=== PATIENT | female | born 1985 | race Caucasian/White ===

== ENCOUNTER 2016-07-28 17:01 | Emergency (ER) | payer OTHER ==
[~2016-07-28 17:01] MED LIST: IBUP400T20 PO; LEVE500 PO; LITH300T PO; PENI250T59 PO; PRAZ5CAP PO; ROBA750T PO
[2016-07-28 17:02] VITALS: BP 135/98; PULSE 120; RESP 20; TEMP 98.6; O2SAT 98
[2016-07-28] MEDS ORDERED: SODIUM CHLOR 0.9% 1000 ML INJ 1,000 ML IV SCH (17:15)
[2016-07-28] MEDS ORDERED: MORPHINE SULFATE 4 MG/ML INJ IV PUSH ONE ×2 (17:15→19:15)
[2016-07-28] MEDS ORDERED: ONDANSETRON HCL 4 MG/2 ML VIAL IVP ONE (17:15)
[2016-07-28] MEDS ORDERED: SODIUM CHLORIDE 0.9% FLUSH 5 ML FLUSH IVF PRN (17:15)
[2016-07-28 17:17] VITALS: O2SAT 95
--- NOTE | 2016-07-28 17:20 | PD ---
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 Symptoms started 2 days ago. She describes it as a sharp, constant, moderate to severe pain with no obvious aggravating or alleviating factors. She reports decreased urination but denies true dysuria. She denies nausea or vomiting but she has had a decreased appetite. Denies fevers or chills, flank pain, vaginal bleeding or discharge, diarrhea or constipation. She reports that she has not been sexually active in approximately 5 months and her last menstrual periods was one month ago. She reports that she was told in the past that she had a left-sided ovarian cyst and she believes that this pain feels similar. She has never had any abdominal surgeries. She still has her appendix. No other complaints. PFSH Past Medical History Anemia: Yes Arthritis: Yes Asthma: No Autoimmune Disease: No Blood Disorders: Yes (ANEMIC) Bipolar Disorder: Yes Anxiety: Yes Depression: No Heart Rhythm Problems: No Cancer: No Cardiovascular Problems: Yes (HTN) High Cholesterol: No Chemotherapy: No Chest Pain: No Congestive Heart Failure: No COPD: No Cerebrovascular Accident: No Diabetes: No Diminished Hearing: No Endocrine: No Gastrointestinal Disorders: No Glaucoma: No Genitourinary: Yes Headaches: No Hepatitis: No Herniated Disk: Yes Hypertension: No Immune Disorder: No Implanted Vascular Access Dvce: Yes (PICC REMOVED JUN 2010) Kidney Stones: Yes Musculoskeletal: Yes (SCOLIOSCIS; BILATERAL CARPAL TUNNEL) Neurologic: Yes (MIGRAINES) Psychiatric: Yes Reproductive: No Respiratory: Yes Immunizations Current: Yes Migraines: Yes Myocardial Infarction: No Radiation Therapy: No Renal Failure: No Seizures: Yes Sickle Cell Disease: No Sleep Apnea: No Thyroid Disease: No Tetanus Vaccination: < 5 Years Influenza Vaccination: No ?: Not Menopausal: No : 2 Para: 0 Miscarriage: 1 : 1 Dilation and Curettage (D&C): Yes Past Surgical History Abdominal Surgery: No AICD: No Arteriovenous Shunt: No Cardiac Surgery: No Cholecystectomy: No Ear Surgery: No Endocrine Surgery: No Eye Surgery: No Genitourinary Surgery: No Gynecologic Surgery: No Insulin Pump: No Joint Replacement: No Neurologic Surgery: No Oral Surgery: No Pacemaker: No Thoracic Surgery: Yes (DRAINED LT LUNG AND STERNUM) Other Surgery: No Social History Alcohol Use: Yes (SOCIALLY) Tobacco Use: Yes (05/17 PPD) Substance Use: No (HX MARIJUANA/COCAINE, DENIES PRESENT USE (04/04/16)) Allergies-Medications (Allergen,Severity, Reaction): Coded Allergies: No Known Allergies (Unverified , 07/28/16) Reported Meds & Prescriptions Reported Meds & Active Scripts Active Tylenol-Codeine #3 (Acetaminophen-Codeine) 300-30 mg Tab 1 Tab PO Q4H PRN Robaxin (Methocarbamol) 750 Mg Tab 750 Mg PO Q8HR Ibuprofen 400 Mg Tab 400 Mg PO Q6H PRN Penicillin Vk (Penicillin V Potassium) 250 Mg Tab 500 Mg PO Q6H 10 Days Reported Prazosin (Prazosin HCl) 5 Mg Cap 5 Mg PO BID [place] Carbonate ER ([place] Carbonate) 300 Mg Tab 500 Mg PO BID Keppra (Levetiracetam) 500 Mg Tab 500 Mg PO BID Review of Systems Except as stated in HPI: all other systems reviewed are Neg Physical Exam Narrative Examined in the presence of a female nurse. GENERAL: Well developed well-nourished female who appears uncomfortable on initial examination. She is tachycardic with a heart rate of 120. SKIN: Warm and dry. HEAD: Atraumatic. Normocephalic. EYES: Pupils equal and round. No scleral icterus. No injection or drainage. ENT: No nasal bleeding or discharge. Mucous membranes pink and moist. NECK: Trachea midline. No JVD. CARDIOVASCULAR: Regular rate and rhythm. No murmur appreciated. RESPIRATORY: No accessory muscle use. Clear to auscultation. Breath sounds equal bilaterally. GASTROINTESTINAL: Abdomen soft, focal tenderness to palpation in the right lower quadrant without guarding. There is no CVA tenderness. Pelvic examination reveals some tenderness to palpation in the right adnexa. There is a small amount of white vaginal discharge. MUSCULOSKELETAL: No obvious deformities. No edema. NEUROLOGICAL: Awake and alert. No obvious cranial nerve deficits. Motor grossly within normal limits. Normal speech. PSYCHIATRIC: Appropriate mood and affect; insight and judgment normal. Data Data Last Documented VS Vital Signs Date Time Temp Pulse Resp B/P Pulse Ox O2 Delivery O2 Flow Rate FiO2 07/28/16 17:38 18 07/28/16 17:17 95 Room Air 07/28/16 17:02 98.6 120 135/98 Orders Complete Blood Count With Diff (07/28/16 17:15) Comprehensive Metabolic Panel (07/28/16 17:15) Lipase (07/28/16 17:15) Urinalysis - C+S If Indicated (07/28/16 17:15) Ct Abd/Pel W Iv Contrast(Rout) (07/28/16 17:15) Iv Access Insert/Monitor (07/28/16 17:15) Ecg Monitoring (07/28/16 17:15) Oximetry (07/28/16 17:15) Morphine Inj (Morphine Inj) (07/28/16 17:15) Ondansetron Inj (Zofran Inj) (07/28/16 17:15) Sodium Chlor 0.9% 1000 Ml Inj (Ns 1000 M (07/28/16 17:15) Sodium Chloride 0.9% Flush (Ns Flush) (07/28/16 17:15) Ed Urine Pregnancytest Poc (07/28/16 17:15) Iohexol 350 Inj (Omnipaque 350 Inj) (07/28/16 17:55) Us Pelvis Comp W Dop Transvag (07/28/16 18:19) Gc And Chlamydia Pcr (07/28/16 19:09) Wet Prep Profile (07/28/16 19:09) Morphine Inj (Morphine Inj) (07/28/16 19:15) Mandatory Outpatient Referral (07/28/16 19:56) Labs Laboratory Tests Test 07/28/16 07/28/16 17:20 19:10 White Blood Count 6.5 TH/MM3 Red Blood Count 3.74 MIL/MM3 Hemoglobin 12.7 GM/DL Hematocrit 35.9 % Mean Corpuscular Volume 96.0 FL Mean Corpuscular Hemoglobin 33.9 PG Mean Corpuscular Hemoglobin 35.3 % Concent Red Cell Distribution Width 12.7 % Platelet Count 240 TH/MM3 Mean Platelet Volume 7.8 FL Neutrophils (%) (Auto) 68.6 % Lymphocytes (%) (Auto) 20.2 % Monocytes (%) (Auto) 8.8 % Eosinophils (%) (Auto) 1.5 % Basophils (%) (Auto) 0.9 % Neutrophils # (Auto) 4.5 TH/MM3 Lymphocytes # (Auto) 1.3 TH/MM3 Monocytes # (Auto) 0.6 TH/MM3 Eosinophils # (Auto) 0.1 TH/MM3 Basophils # (Auto) 0.1 TH/MM3 CBC Comment DIFF FINAL Differential Comment Urine Color YELLOW Urine Turbidity HAZY Urine pH 6.0 Urine Specific [place] 1.020 Urine Protein NEG mg/dL Urine Glucose (UA) NEG mg/dL Urine Ketones NEG mg/dL Urine Occult Blood NEG Urine Nitrite NEG Urine Bilirubin NEG Urine Urobilinogen LESS THAN 2.0 MG/DL Urine Leukocyte Esterase NEG Urine Squamous Epithelial 21 /hpf Cells Urine Amorphous Sediment RARE Microscopic Urinalysis Comment CULT NOT INDICATED Sodium Level 137 MEQ/L Potassium Level 4.1 MEQ/L Chloride Level 104 MEQ/L Carbon Dioxide Level 25.6 MEQ/L Anion Gap 7 MEQ/L Blood Urea Nitrogen 13 MG/DL Creatinine 0.85 MG/DL Estimat Glomerular Filtration 78 ML/MIN Rate Random Glucose 93 MG/DL Calcium Level 8.5 MG/DL Total Bilirubin 0.2 MG/DL Aspartate Amino Transf 17 U/L (AST/SGOT) Alanine Aminotransferase 27 U/L (ALT/SGPT) Alkaline Phosphatase 70 U/L Total Protein 7.5 GM/DL Albumin 4.0 GM/DL Lipase 924 U/L Clue Cells (Wet Prep) NONE SEEN Vaginal Trichomonas (Wet Prep) NONE SEEN Vaginal Yeast (Wet Prep) NONE SEEN Chlamydia trachomatis DNA NOT DETECTED (PCR) Neisseria gonorrhoeae DNA NOT DETECTED (PCR) MDM Medical Decision Making Medical Screen Exam Complete: Yes Emergency Medical Condition: Yes Medical Record Reviewed: Yes Interpretation(s) CBC unremarkable CMP unremarkable, lipase 924 Differential Diagnosis Hemorrhagic cyst, ovarian torsion, ectopic , appendicitis, tubo- ovarian abscess Narrative Course 31-year-old female with sharp constant right lower quadrant abdominal pain for 2 days. On initial examination she appears uncomfortable when she is tachycardic with a heart rate 120. We'll check CT the abdomen and pelvis to rule out appendicitis. Pelvic ultrasound, basic lab work, urinalysis have been ordered. The patient was given morphine, Zofran, IV fluids. CT the abdomen and pelvis reveals bilobed cystic mass in the cul-de-sac and right adnexa likely related to an enlarged right ovary with an exophytic cystic component. The more anterior right lateral component has enlarged since prior exam. Ultrasound reveals large cystic structure in the right ovary with more solid-appearing anterior mass corresponding to the CT abnormality. This could represent a complex cyst versus solid mass. The patient had persistent pain after the first dose of morphine. The second dose didn't improve her pain. Discussed with my attending who agrees with plan of care. Given her pancreatitis of unknown etiology as well as this mass and significant adnexal pain, it was recommended that the patient be admitted for observation however she is declining at this time and would prefer to leave ama. I did discuss with her the risks of leaving AMA including hemorrhaging of the cystic structure or the pancreas, sepsis, , worsening pain and she does verbalize understanding and she has the capacity to make this decision. Per chart review appears that the patient had a outpatient mandatory referral to [facility] placed last year however she was unable to receive the phone call from the case maker because she had lost her phone. She now does have her phone again and therefore a mandatory outpatient referral will be placed. She'll be discharged with the copies of her ultrasound and CT reports as well as with pain medication. She understands that she can return at any time if she changes her mind. Diagnosis Primary Impression: Ovarian mass, right Additional Impressions: Pancreatitis Qualified Code: K85.90 - Acute pancreatitis, unspecified complication status, unspecified pancreatitis type Left against medical advice Referrals: [employer] Additional Instructions: As discussed, he will have a right ovarian mass that is causing pain. It is important to follow up with an [facility] as soon as possible. In addition you have inflammation of your pancreas with unknown cause. Stay well hydrated and well-nourished. Return for any new or worsening symptoms. Scripts Acetaminophen-Codeine (Tylenol-Codeine #3)300-30 mg Tab1 Tab PO Q4H PRN (PAIN) # 20 TAB Ref 0 Prov:Aileen Saleh MD 07/28/16 Disposition: 07 AGAINST MEDICAL ADVICE Condition: Stable Ariel Reynolds Jul 28, 2016 17:20
[2016-07-28 17:38] VITALS: RESP 18
[2016-07-28 17:42] LABS: AUTOMATED NEUTROPHIL # 4.5 TH/MM3 (1.8-7.7); BASOPHIL # 0.1 TH/MM3 (0-0.2); BASOPHIL % 0.9 % (0.0-2.0); EOSINOPHIL # 0.1 TH/MM3 (0-0.4); EOSINOPHIL % 1.5 % (0.0-4.0); HEMATOCRIT 35.9 % (35.0-46.0); HEMO FLAGS DIFF FINAL; LYMPH % 20.2 % (9.0-44.0); LYMPHOCYTE # 1.3 TH/MM3 (1.0-4.8); MEAN CORPUSCULAR HEMOGLOBIN 33.9 PG (27.0-34.0); MEAN CORPUSCULAR HGB CONC 35.3 % (32.0-36.0); MONO % 8.8 % (0.0-8.0); NEUT % 68.6 % (16.0-70.0); PLATELET COUNT 240 TH/MM3 (150-450); RED BLOOD COUNT 3.74 MIL/MM3 (4.00-5.30); RED CELL DISTRIBUTION WIDTH 12.7 % (11.6-17.2); WHITE BLOOD COUNT 6.5 TH/MM3 (4.0-11.0)
[2016-07-28] MEDS ORDERED: IOHEXOL 350 MG/ML 10 ML VIAL (for RAD DIAG) IV ONE (17:55)
[2016-07-28 18:03] LABS: BLOOD, URINE NEG (NEG); COMMENT (UR) CULT NOT INDICATED; CULTURE IF INDICATED CULT NOT INDICATED; GLUCOSE,URINE NEG (NEG); KETONE, URINE NEG (NEG); NITRITE,URINE NEG (NEG); SQUAMOUS EPITHELIAL CELL URINE 21 /hpf (0-5); URINE COLOR YELLOW (YELLW/STRAW)
--- NOTE | 2016-07-28 18:05 | RADRPT ---
EXAM DATE/TIME: 07/28/2016 17:46 [facility] COMPARISON: CT ABDOMEN & PELVIS W CONTRAST, September 05, 2012, 9:49. CT ABDOMEN & PELVIS W CONTRAST, April 04 016, 17:36. INDICATIONS : Left lower abdominal pain. IV CONTRAST: 100 cc Omnipaque 350 (iohexol) IV ORAL CONTRAST: No oral contrast ingested. RADIATION DOSE: 10.27 CTDIvol (mGy) MEDICAL HISTORY : Seizures. Hypertension. Renal calculi.Ovarian cysts. SURGICAL HISTORY : ENCOUNTER: Initial ACUITY: 1 day PAIN SCALE: 5/10 LOCATION: Left lower quadrant TECHNIQUE: Volumetric scanning of the abdomen and pelvis was performed. Using automated exposure control and ad justment of the mA and/or kV according to patient size, radiation dose was kept as low as reasonably achievable to obtain optimal diagnostic quality images. FINDINGS: LOWER LUNGS: The visualized lower lungs are clear. LIVER: Homogeneous density without lesion. There is no dilation of the biliary tree. No calcified gallston es. SPLEEN: Normal size without lesion. PANCREAS: Within normal limits. KIDNEYS: Normal in size and shape. There is no mass, stone or hydronephrosis. ADRENAL GLANDS: Within normal limits. VASCULAR: There is no aortic aneurysm. BOWEL/MESENTERY: The stomach, small bowel, and colon demonstrate no acute abnormality. There is no free intraperitone al air or fluid. ABDOMINAL WALL: Within normal limits. RETROPERITONEUM: There is no lymphadenopathy. BLADDER: No wall thickening or mass. REPRODUCTIVE: There is a cystic mass in the cul-de-sac the right lower quadrant measuring 7.5 x 6.6 x 6.5 cm. This was present previously and is does appear similar in size. There is a complex mass of the right adnex a likely related to a large right ovary. This measures 5.5 x 4.2 x 3.5 cm. The left ovary appears nor mal. INGUINAL: There is no lymphadenopathy or hernia. MUSCULOSKELETAL: Within normal limits for patient age. CONCLUSION: Bilobed cystic mass in the cul-de-sac and right adnexa likely related to an enlarged right ovary with an exophytic cystic component. The more anterior right lateral component has enlarged since the prio r exam. Earl Gonzalez MD on July 28, 2016 at 17:58 Board Certified Radiologist. This report was verified electronically.
[2016-07-28 18:17] LABS: ANION GAP 7 MEQ/L (5-15); BICARBONATE 25.6 MEQ/L (21.0-32.0); BLOOD UREA NITROGEN 13 MG/DL (7-18); CHLORIDE 104 MEQ/L (98-107); GLOMERULAR FILTRATION RATE 78 ML/MIN (>89); POTASSIUM 4.1 MEQ/L (3.5-5.1); SODIUM (NA) 137 MEQ/L (136-145)
[2016-07-28 18:20] LABS: ALKALINE PHOSPHATASE 70 U/L (45-117); ALT (GPT) 27 U/L (10-53); AST (GOT) 17 U/L (15-37); TOTAL BILIRUBIN ADULT 0.2 MG/DL (0.2-1.0)
--- NOTE | 2016-07-28 19:18 | RADRPT ---
EXAM DATE/TIME: 07/28/2016 18:09 [facility] COMPARISON: CT ABDOMEN & PELVIS W CONTRAST, July 28, 2016, 17:46. US PELVIS,COMP,W DOPLR, TRANS VAG, March 152015, 19:07. INDICATIONS : Pelvic pain. MEDICAL HISTORY : . Renal calculi. Hypertension. Bulging cervical disc. Migraines. Seizures. . Miscarr iage. Arthritis. Scoliosis. Bilateral carpal tunnel. Bipolar disorder. Anxiety. Anemia. SURGICAL HISTORY : Drained left lung and sternum. Left foot surgery. PICC line placement and removal. ENCOUNTER: Subsequent ACUITY: 1 day PAIN SCORE: 8/10 LOCATION: Bilateral pelvis MEASUREMENTS: UTERUS: 8.2 x 5.0 x 4.4 cm ENDOMETRIAL STRIPE: 12 mm RIGHT OVARY: 9.7 x 7.1 x 5.6 cm LEFT OVARY: 2.9 x 2.8 x 1.8 cm FINDINGS: UTERUS: The myometrium has homogeneous echotexture without mass. RIGHT OVARY: A large simple appearing cyst is again noted measuring up to 7.8 x 8 x 5.2 cm. There is a more solid mass now noted along the anterior margin of this measuring 5.2 x 4.7 x 3.4 cm. This has low level int ernal echogenicity and no internal color flow. LEFT OVARY: Ovary contains no mass or significant cystic lesion. MISCELLANEOUS: No free fluid. CONCLUSION: 1. The uterus and left ovary are unremarkable. 2. Large cystic structure in the right ovary with more solid appearing anterior mass corresponding to the CT abnormality. This could represent a complex cyst versus solid mass. Rahat Thompson MD on July 28, 2016 at 19:13 Board Certified Radiologist. This report was verified electronically.
[2016-07-28] MEDS ORDERED: TYLETAB34 PO (19:50)
[2016-07-28 21:34] LABS: CHLAMYDIA PCR NOT DETECTED (NOT DETECT); NEISSERIA PCR NOT DETECTED (NOT DETECT)
== END 2016-07-28 20:43 | disposition left against medical advice (07) ==
LOC: NEPA 17:01
DX: N83.9 Noninflammatory disorder of ovary, fallopian tube and broad ligament, unspecified (principal); K85.90 Acute pancreatitis without necrosis or infection, unspecified; I10 Essential (primary) hypertension; Z53.29 Procedure and treatment not carried out because of patient's decision for other reasons; Z72.0 Tobacco use; Z86.2 Personal history of diseases of the blood and blood-forming organs and certain disorders involving the immune mechanism; Z87.39 Personal history of other diseases of the musculoskeletal system and connective tissue; Z86.59 Personal history of other mental and behavioral disorders; Z87.448 Personal history of other diseases of urinary system; Z86.69 Personal history of other diseases of the nervous system and sense organs; Z87.09 Personal history of other diseases of the respiratory system
CPT/HCPCS: 74177; 76830; 76856; 80053; 81001; 83690; 84703; 85025; 87210; 87491; 87591; 93975; 96361; 96374; 96375; 96376; 99284; J2270; J2405; J7030; Q9967

== ENCOUNTER 2016-07-29 23:31 | Emergency (ER) | payer OTHER ==
[~2016-07-29] VITALS: Ht 165.1 cm; Wt 73.0 kg
[~2016-07-29 23:31] MED LIST changes: +TYLETAB34 PO
[2016-07-29 23:33] VITALS: BP 167/103; PULSE 102; RESP 16; TEMP 97.4; O2SAT 100
== END 2016-07-30 02:00 | disposition left against medical advice (07) ==
LOC: NED 23:31
DX: R10.9 Unspecified abdominal pain (principal)
CPT/HCPCS: 99281

== ENCOUNTER 2017-02-27 11:31 | Emergency (ER) | payer OTHER ==
[~2017-02-27] VITALS: Ht 162.6 cm; Wt 70.0 kg
[2017-02-27 11:32] VITALS: BP 149/94; PULSE 116; RESP 20; TEMP 98.8; O2SAT 99
[2017-02-27] MEDS ORDERED: CEPH-460 PO (12:09)
[2017-02-27] MEDS ORDERED: BACT800T5 PO (12:09)
--- NOTE | 2017-02-27 12:10 | PD ---
HPI Chief Complaint: Skin Problem Time Seen by Provider: 11:58 Travel History International Travel<30 days: No Contact w/Intl Traveler<30days: No Traveled to known affect area: No History of Present Illness HPI 32-year-old female presents to the emergency department for evaluation of a laceration sustained to the lateral aspect of her left index finger last evening. Patient states she hit the finger on a nail sticking out of a wall and sustained the injury. She cleansed the wound and went to bed. She woke up with wound erythematous and with drainage. Concerned about the swelling surrounding it. Denies fever or chills. No alterations in range motion, however there is pain elicited with flexion and extension of the left finger at the MCP joint. She denies any alterations in sensation. She has no other symptoms to report. She is up-to-date on her tetanus vaccination. PFSH Past Medical History Anemia: Yes Arthritis: Yes Asthma: No Autoimmune Disease: No Blood Disorders: Yes (ANEMIC) Bipolar Disorder: Yes Anxiety: Yes Depression: No Heart Rhythm Problems: No Cancer: No Cardiovascular Problems: Yes (HTN) High Cholesterol: No Chemotherapy: No Chest Pain: No Congestive Heart Failure: No COPD: No Cerebrovascular Accident: No Diabetes: No Diminished Hearing: No Endocrine: No Gastrointestinal Disorders: No Glaucoma: No Genitourinary: Yes Headaches: No Hepatitis: No Herniated Disk: Yes Hypertension: No Immune Disorder: No Implanted Vascular Access Dvce: Yes (PICC REMOVED JUN 2010) Kidney Stones: Yes Musculoskeletal: Yes (SCOLIOSCIS; BILATERAL CARPAL TUNNEL) Neurologic: Yes (MIGRAINES) Psychiatric: Yes Reproductive: No Respiratory: Yes Immunizations Current: Yes Migraines: Yes Myocardial Infarction: No Radiation Therapy: No Renal Failure: No Seizures: Yes Sickle Cell Disease: No Sleep Apnea: No Thyroid Disease: No ?: Not LMP: 02/02/17 Menopausal: No : 2 Para: 0 Miscarriage: 1 : 1 Dilation and Curettage (D&C): Yes Past Surgical History Abdominal Surgery: No AICD: No Arteriovenous Shunt: No Cardiac Surgery: No Cholecystectomy: No Ear Surgery: No Endocrine Surgery: No Eye Surgery: No Genitourinary Surgery: No Gynecologic Surgery: No Insulin Pump: No Joint Replacement: No Neurologic Surgery: No Oral Surgery: No Pacemaker: No Thoracic Surgery: Yes (DRAINED LT LUNG AND STERNUM) Other Surgery: No Social History Alcohol Use: Yes (SOCIALLY) Tobacco Use: Yes (05/17 PPD) Substance Use: No (HX MARIJUANA/COCAINE, DENIES PRESENT USE (04/04/16)) Allergies-Medications (Allergen,Severity, Reaction): Coded Allergies: No Known Allergies (Unverified , 02/27/17) Reported Meds & Prescriptions Reported Meds & Active Scripts Active Keflex (Cephalexin) 500 Mg Cap 500 Mg PO Q6H 5 Days Bactrim DS (Sulfamethoxazole-Trimethoprim) 800-160 Mg Tab 1 Tab PO BID Tylenol-Codeine #3 (Acetaminophen-Codeine) 300-30 mg Tab 1 Tab PO Q4H PRN Robaxin (Methocarbamol) 750 Mg Tab 750 Mg PO Q8HR Ibuprofen 400 Mg Tab 400 Mg PO Q6H PRN Penicillin Vk (Penicillin V Potassium) 250 Mg Tab 500 Mg PO Q6H 10 Days Reported Prazosin (Prazosin HCl) 5 Mg Cap 5 Mg PO BID [place] Carbonate ER ([place] Carbonate) 300 Mg Tab 500 Mg PO BID Keppra (Levetiracetam) 500 Mg Tab 500 Mg PO BID Review of Systems Except as stated in HPI: all other systems reviewed are Neg Physical Exam Narrative GENERAL: Well-nourished, well-developed male patient in no acute distress. SKIN: Focused skin assessment warm/dry. 1-1/2 cm scabbed over superficial laceration to the lateral aspect of the proximal left index finger. There is erythema surrounding approximately 1 cm in diameter. There is no fluctuation. No active drainage. The area is very tender to touch. HEAD: Normocephalic. EYES: No scleral icterus. No injection or drainage. NECK: Supple, trachea midline. No JVD or lymphadenopathy. CARDIOVASCULAR: Regular rate and rhythm without murmurs, gallops, or rubs. RESPIRATORY: Breath sounds equal bilaterally. No accessory muscle use.. MUSCULOSKELETAL: No cyanosis. No deformity. Distal pulses are palpable. Cap refills within normal limits. BACK: Nontender without obvious deformity. No CVA tenderness. Data Data Last Documented VS Vital Signs Date Time Temp Pulse Resp B/P (MAP) Pulse Ox O2 Delivery O2 Flow Rate FiO2 02/27/17 12:19 02/27/17 11:32 98.8 116 20 99 Room Air Orders Orders Ed Discharge Order (02/27/17 12:10) MDM Medical Decision Making Medical Screen Exam Complete: Yes Emergency Medical Condition: Yes Medical Record Reviewed: Yes Differential Diagnosis Wound open versus infected versus healing versus cellulitis versus abscess Narrative Course 32-year-old female presents to the emergency department for evaluation a laceration to the lateral aspect of the left index finger. The wound does appear to be clean but with a secondary infection. Patient will be started on oral antibiotics. She is counseled on care. She agrees to return immediately with any acute worsening symptoms. Diagnosis Primary Impression: Open wound of finger, infected Qualified Codes: S61.209A - Unspecified open wound of unspecified finger without damage to nail, initial encounter; L08.9 - Local infection of the skin and subcutaneous tissue, unspecified Additional Impression: Laceration of left index finger Qualified Codes: S61.211A - Laceration without foreign body of left index finger without damage to nail, initial encounter Referrals: Primary Care Physician Patient Instructions: Acute Wound Care (DC), General Instructions Additional Instructions: Keep the area clean and dry Wash with warm soapy water two times a day, rinse, then pat dry Elevate to reduce pain and swelling Start antibiotics today and take until complete Follow-up with a primary care provider Tylenol or ibuprofen as instructed on package as needed for pain Return immediately with any acute worsening symptoms Med/Other Pt SpecificInfo: Prescription(s) given Scripts Cephalexin (Keflex) 500 Mg Cap 500 MG PO Q6H for Infection for 5 Days, #20 CAP 0 Refills Prov: Shyann Vargas 02/27/17 Sulfamethoxazole-Trimethoprim (Bactrim DS) 800-160 Mg Tab 1 TAB PO BID for Infection, #20 TAB 0 Refills Prov: Shyann Vargas 02/27/17 Disposition: 01 DISCHARGE HOME Condition: Stable Shyann Vargas Feb 27, 2017 12:10
== END 2017-02-27 12:24 | disposition home or self-care (01) ==
LOC: NEPK 11:31
DX: L08.9 Local infection of the skin and subcutaneous tissue, unspecified (principal); S61.209A Unspecified open wound of unspecified finger without damage to nail, initial encounter; S61.211A Laceration without foreign body of left index finger without damage to nail, initial encounter; D64.9 Anemia, unspecified; I10 Essential (primary) hypertension; W45.0XXA Nail entering through skin, initial encounter; Z72.0 Tobacco use
CPT/HCPCS: 99284

== ENCOUNTER 2017-04-14 11:36 | Emergency (ER) | payer OTHER ==
[~2017-04-14] VITALS: Ht 162.6 cm; Wt 67.0 kg
[~2017-04-14 11:36] MED LIST changes: +BACT800T5 PO; +CEPH-460 PO; +IBUP1TAB5 PO; -IBUP400T20 PO
[2017-04-14 11:39] VITALS: BP 150/96; PULSE 103; RESP 14; TEMP 99; O2SAT 99
[2017-04-14] MEDS ORDERED: SERO400T PO (12:00)
[2017-04-14] MEDS ORDERED: VIST50CA PO (12:00)
[2017-04-14] MEDS ORDERED: NEUR300C PO (12:00)
[2017-04-14] MEDS ORDERED: LITH300C2 PO (12:00)
[2017-04-14] MEDS ORDERED: CLON0.1T PO (12:00)
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
[2017-04-14 12:20] LABS: AUTOMATED NEUTROPHIL # 2.8 TH/MM3 (1.8-7.7); BASOPHIL # 0.1 TH/MM3 (0-0.2); EOSINOPHIL # 0.1 TH/MM3 (0-0.4); EOSINOPHIL % 1.9 % (0.0-4.0); HEMATOCRIT 35.4 % (35.0-46.0); HEMO FLAGS DIFF FINAL; LYMPH % 39.1 % (9.0-44.0); LYMPHOCYTE # 2.3 TH/MM3 (1.0-4.8); MEAN CELL VOLUME 90.4 FL (80.0-100.0); MEAN CORPUSCULAR HEMOGLOBIN 30.3 PG (27.0-34.0); MEAN CORPUSCULAR HGB CONC 33.5 % (32.0-36.0); MONO % 10.5 % (0.0-8.0); NEUT % 47.5 % (16.0-70.0); PLATELET COUNT 305 TH/MM3 (150-450); RED BLOOD COUNT 3.91 MIL/MM3 (4.00-5.30); RED CELL DISTRIBUTION WIDTH 13.1 % (11.6-17.2); WHITE BLOOD COUNT 5.8 TH/MM3 (4.0-11.0)
[2017-04-14 12:21] LABS: BACTERIA, URINE RARE /hpf; BLOOD, URINE NEG (NEG); COMMENT (UR) CULT NOT INDICATED; CULTURE IF INDICATED CULT NOT INDICATED; GLUCOSE,URINE NEG (NEG); KETONE, URINE NEG (NEG); MUCUS URINE FEW /lpf (OCC); NITRITE,URINE NEG (NEG); SQUAMOUS EPITHELIAL CELL URINE 3 /hpf (0-5); URINE COLOR LIGHT-YELLOW (YELLW/STRAW)
[2017-04-14 12:39] LABS: ANION GAP 10 MEQ/L (5-15)
[2017-04-14 12:43] LABS: ALKALINE PHOSPHATASE 84 U/L (45-117); ALT (GPT) 21 U/L (10-53); AST (GOT) 26 U/L (15-37); BICARBONATE 20.3 MEQ/L (21.0-32.0); BLOOD UREA NITROGEN 13 MG/DL (7-18); CHLORIDE 110 MEQ/L (98-107); GLOMERULAR FILTRATION RATE 94 ML/MIN (>89); POTASSIUM 3.4 MEQ/L (3.5-5.1); SODIUM (NA) 140 MEQ/L (136-145); TOTAL BILIRUBIN ADULT 0.1 MG/DL (0.2-1.0)
[2017-04-14 12:46] LABS: ACETAMINOPHEN LESS THAN 2.0 MCG/ML (10.0-30.0); ALCOHOL 194 MG/DL (0-5)
[2017-04-14 18:41] VITALS: BP 124/71; PULSE 83; RESP 16; TEMP 98.7; O2SAT 100
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
== END 2017-04-14 22:20 | disposition home or self-care (01) ==
LOC: NEPD 11:36 → NEPJ 22:20
DX: Z02.89 Encounter for other administrative examinations (principal); Z72.0 Tobacco use; Z79.899 Other long term (current) drug therapy; Z86.2 Personal history of diseases of the blood and blood-forming organs and certain disorders involving the immune mechanism; Z87.39 Personal history of other diseases of the musculoskeletal system and connective tissue; Z86.59 Personal history of other mental and behavioral disorders; Z86.79 Personal history of other diseases of the circulatory system; Z87.448 Personal history of other diseases of urinary system; Z86.69 Personal history of other diseases of the nervous system and sense organs
CPT/HCPCS: 80053; 80307; 81001; 84703; 85025; 99284

== ENCOUNTER 2017-06-24 08:32 | Emergency (ER) | payer OTHER ==
[~2017-06-24] VITALS: Ht 162.6 cm; Wt 68.0 kg
[~2017-06-24 08:32] MED LIST changes: -BACT800T5 PO; -CEPH-460 PO; +CLON0.1T PO; -IBUP1TAB5 PO; -LEVE500 PO; +LITH300C2 PO; +NEUR300C PO; -PENI250T59 PO; -ROBA750T PO; +SERO400T PO; -TYLETAB34 PO; +VIST50CA PO
[2017-06-24 08:35] VITALS: BP 130/87; PULSE 159; RESP 17; TEMP 98; O2SAT 98
[2017-06-24] MEDS ORDERED: SODIUM CHLOR 0.9% 1000 ML INJ 1,000 ML IV ONE ×2 (08:41→11:15)
[2017-06-24] MEDS ORDERED: LORazepam 2 MG/ML VIAL IV PUSH ONE (08:45)
[2017-06-24] MEDS ORDERED: SODIUM CHLORIDE 0.9% FLUSH 10 ML FLUSH IVF PRN (08:45)
[2017-06-24 09:12] LABS: AUTOMATED NEUTROPHIL # 3.8 TH/MM3 (1.8-7.7); BASOPHIL % 0.4 % (0.0-2.0); EOSINOPHIL % 0.7 % (0.0-4.0); HEMATOCRIT 38.1 % (35.0-46.0); HEMOGLOBIN 12.9 GM/DL (11.6-15.3); LYMPH % 18.8 % (9.0-44.0); MEAN CELL VOLUME 88.8 FL (80.0-100.0); MEAN CORPUSCULAR HEMOGLOBIN 30.1 PG (27.0-34.0); MEAN CORPUSCULAR HGB CONC 33.8 % (32.0-36.0); MEAN PLATELET VOLUME 7.4 FL (7.0-11.0); MONOCYTE # 0.7 TH/MM3 (0-0.9); NEUT % 68.1 % (16.0-70.0); PLATELET COUNT 275 TH/MM3 (150-450); RED BLOOD COUNT 4.29 MIL/MM3 (4.00-5.30); RED CELL DISTRIBUTION WIDTH 13.8 % (11.6-17.2); WHITE BLOOD COUNT 5.6 TH/MM3 (4.0-11.0)
[2017-06-24 09:25] VITALS: BP 114/74; PULSE 129; RESP 16; O2SAT 98
[2017-06-24 09:31] LABS: ALBUMIN 4.1 GM/DL (3.4-5.0); AST (GOT) 25 U/L (15-37); BICARBONATE 24.5 MEQ/L (21.0-32.0); BLOOD UREA NITROGEN 24 MG/DL (7-18); CALCIUM 9.3 MG/DL (8.5-10.1); CHLORIDE 95 MEQ/L (98-107); CREATININE 0.92 MG/DL (0.50-1.00); GLOMERULAR FILTRATION RATE 71 ML/MIN (>89); GLUCOSE,RANDOM 160 MG/DL (74-106); SODIUM (NA) 131 MEQ/L (136-145)
[2017-06-24 09:32] LABS: ALT (GPT) 21 U/L (10-53)
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
[2017-06-24 09:36] LABS: ALKALINE PHOSPHATASE 71 U/L (45-117); TOTAL BILIRUBIN ADULT 0.9 MG/DL (0.2-1.0); TOTAL PROTEIN 7.8 GM/DL (6.4-8.2)
[2017-06-24 10:00] VITALS: BP 120/80; PULSE 115; RESP 20; O2SAT 95
[2017-06-24 12:44] VITALS: BP 107/70
--- NOTE | 2017-06-24 16:43 | EKG ---
Date Performed: 06/24/2017 Time Performed: 08:42:53 PTAGE: 32 years EKG: SINUS TACHYCARDIA WITH SHORT IN INTERVAL, POSSIBLE ATRIAL FLUTTER NONSPECIFIC T-WAVE ABNORM ALITY ABNORMAL RHYTHM ECG PREVIOUS TRACING : 02/12/2015 21.34 Compared to prior tracing, rate has increased, possible Afl utter DOCTOR: Jose Escudero Interpretating Date/Time 06/24/2017 16:42:59
== END 2017-06-24 12:40 | disposition home or self-care (01) ==
LOC: NEPE 08:32
DX: R41.82 Altered mental status, unspecified (principal); R00.0 Tachycardia, unspecified; R94.31 Abnormal electrocardiogram [ECG] [EKG]; R56.9 Unspecified convulsions; D64.9 Anemia, unspecified; I10 Essential (primary) hypertension; Z79.899 Other long term (current) drug therapy; Z72.0 Tobacco use
CPT/HCPCS: 80053; 80307; 84702; 85025; 93005; 96361; 96374; 99284; J2060; J7030

== ENCOUNTER 2017-08-28 23:59 | Observation (INO) | payer OTHER ==
[~2017-08-28] VITALS: Ht 157.5 cm; Wt 67.0 kg
[~2017-08-28 23:59] MED LIST changes: -LITH300T PO
[2017-08-29] VITALS (15 sets, daily range): BP systolic 98–157; BP diastolic 60–104; PULSE 69–121; RESP 16–20; TEMP 98.1–98.6; O2SAT 98–100
[2017-08-29] MEDS ORDERED: SODIUM CHLOR 0.9% 1000 ML INJ 1,000 ML IV ONE ×2 (00:15→02:45)
[2017-08-29] MEDS ORDERED: ONDANSETRON HCL 4 MG/2 ML VIAL IV ONE (00:15)
--- NOTE | 2017-08-29 00:31 | RADRPT ---
EXAM DATE/TIME: 08/29/2017 00:17 [facility] COMPARISON: No previous studies available for comparison. INDICATIONS : Short of breath. Possible seziure. MEDICAL HISTORY : None. SURGICAL HISTORY : None. ENCOUNTER: Initial ACUITY: 1 day PAIN SCORE: Non-responsive. LOCATION: Bilateral chest FINDINGS: A single view of the chest demonstrates the lungs to be symmetrically aerated without evidence of mas s, infiltrate or effusion. The cardiomediastinal contours are unremarkable. Osseous structures are intact. CONCLUSION: No acute cardiopulmonary disease. Earl Enciso MD on August 29, 2017 at 0:30 Board Certified Radiologist. This report was verified electronically.
[2017-08-29 00:42] LABS: AUTOMATED NEUTROPHIL # 1.6 TH/MM3 (1.8-7.7); BASOPHIL % 1.1 % (0.0-2.0); EOSINOPHIL % 1.4 % (0.0-4.0); HEMATOCRIT 37.1 % (35.0-46.0); HEMOGLOBIN 12.5 GM/DL (11.6-15.3); LYMPH % 41.8 % (9.0-44.0); LYMPHOCYTE # 1.4 TH/MM3 (1.0-4.8); MEAN CELL VOLUME 89.1 FL (80.0-100.0); MEAN CORPUSCULAR HEMOGLOBIN 30.2 PG (27.0-34.0); MEAN CORPUSCULAR HGB CONC 33.8 % (32.0-36.0); MEAN PLATELET VOLUME 7.7 FL (7.0-11.0); MONO % 7.1 % (0.0-8.0); MONOCYTE # 0.2 TH/MM3 (0-0.9); NEUT % 48.6 % (16.0-70.0); PLATELET COUNT 277 TH/MM3 (150-450); RED BLOOD COUNT 4.16 MIL/MM3 (4.00-5.30); RED CELL DISTRIBUTION WIDTH 13.3 % (11.6-17.2); WHITE BLOOD COUNT 3.3 TH/MM3 (4.0-11.0)
--- NOTE | 2017-08-29 00:46 | PD ---
HPI Chief Complaint: Seizure Time Seen by Provider: 00:02 Travel History International Travel<30 days: No Contact w/Intl Traveler<30days: No Traveled to known affect area: No History of Present Illness HPI The patient is a 32 year old female who presents to the [facility] emergency department with a history of seizure activity that was noted by her significant other to be seizing while in bed. The patient reportedly has a history of seizure disorder. The patient on arrival denies being on any seizure medication. The patient according to ambulance services was noted to have continued seizure activity when they arrived. The patient was experiencing a generalized tonic-clonic seizure that in total lasted an estimated 35-40 minutes. The seizure was aborted after IV access was obtained and Versed 2 mg was administered. The patient then became more awake, confused , and then more alert. The patient on arrival is still confused, however she is beginning to follow commands. She reports that her medications include Seroquel, gabapentin, and clonidine. She denies using any illicit drugs. The patient had one episode of vomiting prior to arrival. She denies having any recent fevers, cough or congestion, neck pain, chest pain, shortness of breath, abdominal pain, diarrhea, urinary symptoms, or neurologic symptoms. [facility] Past Medical History Narrative Medical The patient's past medical history is significant for psychiatric disorder, anemia, prior history of drug use, hypertension, and seizure disorder. ADHD: Yes Anemia: Yes Arthritis: Yes Asthma: No Autoimmune Disease: No Blood Disorders: Yes (ANEMIC) Bipolar Disorder: Yes Anxiety: Yes Depression: Yes Heart Rhythm Problems: No Cancer: No Cardiovascular Problems: Yes (HTN) High Cholesterol: No Chemotherapy: No Chest Pain: No Congestive Heart Failure: No COPD: No Cerebrovascular Accident: No Diabetes: No Diminished Hearing: No Endocrine: No Gastrointestinal Disorders: No Glaucoma: No Genitourinary: Yes Headaches: No Hepatitis: No Heparin Induced Thrombocytopen: No Herniated Disk: Yes Hypertension: No Immune Disorder: No Implanted Vascular Access Dvce: Yes (PICC REMOVED JUN 2010) Kidney Stones: Yes Musculoskeletal: Yes (SCOLIOSCIS; BILATERAL CARPAL TUNNEL) Neurologic: Yes (MIGRAINES) Psychiatric: Yes Reproductive: No Respiratory: Yes Immunizations Current: Yes Migraines: Yes Myocardial Infarction: No Radiation Therapy: No Renal Failure: No Seizures: Yes Sickle Cell Disease: No Sleep Apnea: No Thyroid Disease: No Tetanus Vaccination: < 5 Years Influenza Vaccination: No ?: Unknown LMP: 08/12/17 Menopausal: No : 2 Para: 0 Miscarriage: 1 : 1 Dilation and Curettage (D&C): Yes Past Surgical History Narrative Surgical The patient's past surgical history is significant for "left lung drainage". Abdominal Surgery: No AICD: No Arteriovenous Shunt: No Cardiac Surgery: No Cholecystectomy: No Ear Surgery: No Endocrine Surgery: No Eye Surgery: No Genitourinary Surgery: No Gynecologic Surgery: No Insulin Pump: No Joint Replacement: No Neurologic Surgery: No Oral Surgery: No Pacemaker: No Thoracic Surgery: Yes (DRAINED LT LUNG AND STERNUM) Other Surgery: No Social History Alcohol Use: Yes (ocas) Tobacco Use: Yes Substance Use: No (smokes "weed") Allergies-Medications (Allergen,Severity, Reaction): Coded Allergies: No Known Allergies (Unverified Adverse Reaction, Unknown, 08/29/17) Reported Meds & Prescriptions Reported Meds & Active Scripts Active Reported Neurontin (Gabapentin) 300 Mg Cap 300 Mg PO TID Seroquel (Quetiapine Fumarate) 400 Mg Tab 400 Mg PO BID Vistaril (Hydroxyzine Pamoate) 50 Mg Cap 50 Mg PO TID [place] Carbonate 300 Mg Cap 300 Mg PO TID Clonidine (Clonidine HCl) 0.1 Mg Tab 0.1 Mg PO BID Prazosin (Prazosin HCl) 5 Mg Cap 5 Mg PO TID Review of Systems Except as stated in HPI: all other systems reviewed are Neg General / Constitutional: No: Fever Eyes: No: Visual changes HENT: No: Headaches Cardiovascular: No: Chest Pain or Discomfort Respiratory: No: Shortness of Breath Gastrointestinal: Positive: Nausea, Vomiting, No: Abdominal Pain Genitourinary: No: Dysuria Musculoskeletal: No: Pain Skin: No Rash Neurologic: Positive: Change in Mentation, Seizures, No: Weakness, Focal Abnormalities, Slurred Speech, Sensory Disturbance Psychiatric: No: Depression Endocrine: No: Polydipsia Hematologic/Lymphatic: No: Easy Bruising Physical Exam Narrative General: The patient is a well-developed well-nourished female in no acute distress. Head and Neck exam: Head is normocephalic atraumatic. Eyes: EOMI, pupils are equal round and reactive to light. Nose: Midline septum with pink mucous membranes Mouth: The patient has poor dentition throughout her mouth with gingival erythema, no [place] abscess formation. Audible teeth are decayed down to the gumline. Moist mucus membranes. Posterior oropharynx is not erythematous. No tonsillar hypertrophy. Uvula midline. Airway patent. Neck: No palpable lymphadenopathy. No nuchal rigidity. No thyromegaly. Cardiovascular: Sinus tachycardia in the low 100 without murmurs, gallops, or rubs. No pulse deficit to the extremities on simultaneous auscultation and palpation of her radial artery. Lungs: Clear to auscultation bilaterally. No wheezes, rhonchi, or rales. Abdomen: Soft, without tenderness to palpation in all 4 quadrants of the abdomen. No guarding, rebound, or rigidity. Normal bowel sounds are audible. No tenderness on palpation of McBurney's point. Negative Red sign. Extremities: No clubbing, cyanosis, or edema. 2+ pulses in all 4 extremities. No calf tenderness on palpation. Back: No spinous process tenderness to palpation. No costovertebral angle tenderness to palpation. Neurologic Exam: Cranial nerves 2-12 were intact on exam. Strength is 5/5 in all 4 extremities. No sensory deficits noted. The patient is drowsy on examination. The patient is oriented to person and place, however not time or situation. Skin Exam: No rash noted. Intact skin that is warm and dry. Data Data Last Documented VS Vital Signs Date Time Temp Pulse Resp B/P (MAP) Pulse Ox O2 Delivery O2 Flow Rate FiO2 08/29/17 00:29 78 16 125/85 (98) 100 Nasal Cannula 2.00 08/29/17 00:01 98.1 Orders Orders Electrocardiogram (08/29/17 00:04) Complete Blood Count With Diff (08/29/17 00:04) Comprehensive Metabolic Panel (08/29/17 00:04) Creatine Kinase (Cpk) (08/29/17 00:04) Ckmb (Isoenzyme) Profile (08/29/17 00:04) Troponin I (08/29/17 00:04) Prothrombin Time / Inr (Pt) (08/29/17 00:04) Act Partial Throm Time (Ptt) (08/29/17 00:04) Lipase (08/29/17 00:04) Urinalysis - C+S If Indicated (08/29/17 00:04) Cath For Specimen (08/29/17 00:04) Magnesium (Mg) (08/29/17 00:04) Ammonia (08/29/17 00:04) Thyroid Stimulating Hormone (08/29/17 00:04) Chest, Single Ap (08/29/17 00:04) Ct Brain W/O Iv Contrast(Rout) (08/29/17 00:04) Iv Access Insert/Monitor (08/29/17 00:04) Ecg Monitoring (08/29/17 00:04) Oximetry (08/29/17 00:04) Ed Urine Pregnancytest Poc (08/29/17 00:04) Drug Screen, Random Urine (08/29/17 00:04) Alcohol (Ethanol) (08/29/17 00:04) Salicylates (Aspirin) (08/29/17 00:04) Tylenol (Acetaminophen) (08/29/17 00:04) Sodium Chlor 0.9% 1000 Ml Inj (Ns 1000 M (08/29/17 00:15) Ondansetron Inj (Zofran Inj) (08/29/17 00:15) Sodium Chlor 0.9% 1000 Ml Inj (Ns 1000 M (08/29/17 02:45) Levetiracetam Inj (Keppra Inj) (08/29/17 03:15) Admit Order (Ed Use Only) (08/29/17 03:06) Labs Laboratory Tests Test 08/29/17 00:10 08/29/17 00:45 White Blood Count 3.3 TH/MM3 Red Blood Count 4.16 MIL/MM3 Hemoglobin 12.5 GM/DL Hematocrit 37.1 % Mean Corpuscular Volume 89.1 FL Mean Corpuscular Hemoglobin 30.2 PG Mean Corpuscular Hemoglobin Concent 33.8 % Red Cell Distribution Width 13.3 % Platelet Count 277 TH/MM3 Mean Platelet Volume 7.7 FL Neutrophils (%) (Auto) 48.6 % Lymphocytes (%) (Auto) 41.8 % Monocytes (%) (Auto) 7.1 % Eosinophils (%) (Auto) 1.4 % Basophils (%) (Auto) 1.1 % Neutrophils # (Auto) 1.6 TH/MM3 Lymphocytes # (Auto) 1.4 TH/MM3 Monocytes # (Auto) 0.2 TH/MM3 Eosinophils # (Auto) 0.0 TH/MM3 Basophils # (Auto) 0.0 TH/MM3 CBC Comment DIFF FINAL Differential Comment Prothrombin Time 10.8 SEC Prothromb Time International Ratio 1.1 RATIO Activated Partial Thromboplast Time 23.6 SEC Blood Urea Nitrogen 9 MG/DL Creatinine 0.84 MG/DL Random Glucose 88 MG/DL Total Protein 7.3 GM/DL Albumin 3.7 GM/DL Calcium Level 8.2 MG/DL Magnesium Level 2.3 MG/DL Alkaline Phosphatase 64 U/L Aspartate Amino Transf (AST/SGOT) 17 U/L Alanine Aminotransferase (ALT/SGPT) 20 U/L Total Bilirubin 0.3 MG/DL Sodium Level 147 MEQ/L Potassium Level 3.6 MEQ/L Chloride Level 111 MEQ/L Carbon Dioxide Level 24.2 MEQ/L Anion Gap 12 MEQ/L Estimat Glomerular Filtration Rate 79 ML/MIN Ammonia 103 MCMOL/L Total Creatine Kinase 69 U/L Troponin I LESS THAN 0.02 NG/ML Lipase 83 U/L Thyroid Stimulating Hormone 3rd Gen 1.130 uIU/ML Salicylates Level LESS THAN 1.7 MG/DL Acetaminophen Level LESS THAN 2.0 MCG/ML Ethyl Alcohol Level 122 MG/DL Urine Color LIGHT-YELLOW Urine Turbidity CLEAR Urine pH 7.0 Urine Specific [place] 1.007 Urine Protein NEG mg/dL Urine Glucose (UA) NEG mg/dL Urine Ketones NEG mg/dL Urine Occult Blood NEG Urine Nitrite NEG Urine Bilirubin NEG Urine Urobilinogen LESS THAN 2.0 MG/DL Urine Leukocyte Esterase NEG Urine RBC LESS THAN 1 /hpf Urine WBC 1 /hpf Urine Squamous Epithelial Cells 2 /hpf Urine Transitional Epithelial Cells 2 /hpf Microscopic Urinalysis Comment CULT NOT INDICATED Urine Opiates Screen NEG Urine Barbiturates Screen NEG Urine Amphetamines Screen NEG Urine Benzodiazepines Screen POS Urine Cocaine Screen NEG Urine Cannabinoids Screen NEG MDM Medical Decision Making Medical Screen Exam Complete: Yes Emergency Medical Condition: Yes Medical Record Reviewed: Yes Interpretation(s) Last Impressions Head CT 08/29/17 0004 Signed Impressions: Service Date/Time: Tuesday, August 29, 2017 02:47 - CONCLUSION: Negative noncontrast head CT. Earl Enciso MD Chest X-Ray 08/29/17 0004 Signed Impressions: Service Date/Time: Tuesday, August 29, 2017 00:17 - CONCLUSION: No acute cardiopulmonary disease. Earl Enciso MD Differential Diagnosis Epilepsy, versus seizure activity related to substance use, versus electrolyte abnormality, versus intracranial abnormality Narrative Course During the course of the patient's emergency department visit, the patient's history, examination, and differential diagnosis were reviewed with the patient. The patient was placed on a surveillance system monitor with oximetry and frequent blood pressure monitoring. The patient had IV access obtained and blood work sent for analysis. The patient had an EKG done on arrival that shows a sinus tachycardia heart rate of 105, QRS duration 80 ms, QTC [address] segment elevation. T waves are inverted in V1. The patient was initially provided Zofran 4 mg IV, normal saline 1 L IV fluid bolus which was repeated 1, Keppra 500 mg IV was administered. The patient's laboratory studies were reviewed and remarkable for a white count of 3.3, hemoglobin 12.5, platelets 277 with a normal differential, CMP is remarkable for sodium of 147, chloride 111, GFR 79, calcium 8.2, cardiac enzymes within normal limits, lipase 83, TSH is 1.13, ammonia level is elevated at 103-I have concerned about the validity of this number as the patient has no history of liver disease and normal liver function tests, therefore this will be repeated as an inpatient. PT PTT unremarkable, urinalysis within normal limits. Urine drug screen is positive for benzodiazepines, salicylates less than 1.7, acetaminophen less than 2, alcohol level 122. Radiology studies were reviewed and remarkable for chest x-ray that shows no acute cardiopulmonary disease. CT scan of the brain shows no acute abnormality. The patient's results were discussed with the patient, including the plan of care. I explained that further testing and/ or monitoring is indicated based on the patient's history, examination, and/ or laboratory findings. Therefore, I recommended admission for additional evaluation. The patient expressed understanding and was agreeable with this plan. The patient was admitted to the hospital in stable condition and sent to a bed under the care of the [facility]. Physician Communication Physician Communication The patient's case including history, pertinent physical examination findings, and laboratory studies were discussed with Dr. Dobson. It was agreed that the patient would be admitted to the [facility] service. Diagnosis Primary Impression: Prolonged seizure Additional Impression: Altered mental status Qualified Codes: R41.0 - Disorientation, unspecified Admitting Information Admitting Physician Requests: Admit Lucy Mortensen MD Aug 29, 2017 00:46
[2017-08-29 00:54] LABS: INTERNATIONAL NORMALIZED RATIO 1.1 RATIO; PROTHROMBIN TIME - PATIENT 10.8 SEC (9.8-11.6)
[2017-08-29 00:56] LABS: ALBUMIN 3.7 GM/DL (3.4-5.0); AST (GOT) 17 U/L (15-37); BICARBONATE 24.2 MEQ/L (21.0-32.0); BLOOD UREA NITROGEN 9 MG/DL (7-18); CALCIUM 8.2 MG/DL (8.5-10.1); CHLORIDE 111 MEQ/L (98-107); CREATININE 0.84 MG/DL (0.50-1.00); GLOMERULAR FILTRATION RATE 79 ML/MIN (>89); GLUCOSE,RANDOM 88 MG/DL (74-106); MAGNESIUM 2.3 MG/DL (1.5-2.5); SODIUM (NA) 147 MEQ/L (136-145)
[2017-08-29 01:02] LABS: BILIRUBIN, URINE NEG (NEG); BLOOD, URINE NEG (NEG); GLUCOSE,URINE NEG (NEG); KETONE, URINE NEG (NEG); NITRITE,URINE NEG (NEG); SQUAMOUS EPITHELIAL CELL URINE 2 /hpf (0-5); TRANSITIONAL EPI CELLS, URINE 2 /hpf; URINE COLOR LIGHT-YELLOW (YELLW/STRAW); URINE LEUKOCYTE ESTERASE NEG (NEG)
[2017-08-29 01:04] LABS: ACETAMINOPHEN LESS THAN 2.0 MCG/ML (10.0-30.0); ALKALINE PHOSPHATASE 64 U/L (45-117); ALT (GPT) 20 U/L (10-53); TOTAL BILIRUBIN ADULT 0.3 MG/DL (0.2-1.0); TOTAL PROTEIN 7.3 GM/DL (6.4-8.2); TROPONIN I LESS THAN 0.02 NG/ML (0.02-0.05)
--- NOTE | 2017-08-29 03:04 | RADRPT ---
EXAM DATE/TIME: 08/29/2017 02:47 [place] COMPARISON: CT BRAIN W/O CONTRAST, February 17, 2016, 14:25. INDICATIONS : Seizure. RADIATION DOSE: 56.35 CTDIvol (mGy) MEDICAL HISTORY : Seizures. SURGICAL HISTORY : None. ENCOUNTER: Initial ACUITY: 1 day PAIN SCALE: 5/10 LOCATION: cranial TECHNIQUE: Multiple contiguous axial images were obtained of the head. Using automated exposure control and adj ustment of the mA and/or kV according to patient size, radiation dose was kept as low as reasonably a chievable to obtain optimal diagnostic quality images. DICOM format image data is available electro nically for review and comparison. FINDINGS: CEREBRUM: The ventricles are normal for age. No evidence of midline shift, mass lesion, hemorrhage or acute in farction. No extra-axial fluid collections are seen. POSTERIOR FOSSA: The cerebellum and brainstem are intact. The 4th ventricle is midline. The cerebellopontine angle i s unremarkable. EXTRACRANIAL: The visualized portion of the orbits is intact. SKULL: The calvaria is intact. No evidence of skull fracture. CONCLUSION: Negative noncontrast head CT. Earl Enciso MD on August 29, 2017 at 3:03 Board Certified Radiologist. This report was verified electronically.
[2017-08-29] MEDS ORDERED: levETIRAcetam INJ 500 MG in SODIUM CHLORIDE 0.9% INJ 100 ML IV ONE (03:15)
[2017-08-29] MEDS ORDERED: SODIUM CHLORIDE 0.9% FLUSH 10 ML FLUSH IV FLUSH PRN ×2 (03:45→16:45)
[2017-08-29] MEDS ORDERED: LORazepam 2 MG/ML VIAL IV PUSH PRN (03:45)
[2017-08-29] MEDS: SODIUM CHLOR 0.9% 1000 ML INJ 1,000 ML IV SCH ×2 (04:51→17:00)
--- NOTE | 2017-08-29 08:00 | HHI.HP ---
[facility] Service [facility] Primary Care Physician No Primary Care Physician Admission Diagnosis AMS, prolonged seizure activity Diagnoses: (1) Prolonged seizure Diagnosis: Principal Chief Complaint: seizure Travel History International Travel<30 Days: No Contact w/Intl Traveler <30 Da: No Traveled to Known Affected Are: No History of Present Illness patient is a 32 y/o female with history of bipolar disorder and seizure who was brought to ER after she had a seizure last night. she says that she has a history of seizure which was diagnosed about five years ago but she's not taking any medications for it. the last seizure was about a year ago. she doesn' t remember what happened last night but the seizure was witnessed by her boyfriend. she says that the dose of her seroquel was increased recently. at the time of my evaluation she was resting comfortably with no distress or any complaints. Review of Systems Constitutional: DENIES: Fever, Weight loss, Chills, Night Sweats Eyes: DENIES: Blurred vision, Diplopia, Vision loss, Double Vision Ears, nose, mouth, throat: DENIES: Tinnitus, Vertigo, Throat pain, Epistaxis Respiratory: DENIES: Apneas, Cough, Snoring, Wheezing, Hemoptysis, Sputum production, Shortness of breath Cardiovascular: DENIES: Chest pain, Palpitations, Syncope, Dyspnea on Exertion , PND, Lower Extremity Edema, Orthopnea, Claudication Gastrointestinal: DENIES: Abdominal pain, Black stools, Bloody stools, Constipation, Diarrhea, Nausea, Vomiting, Difficulty Swallowing, Anorexia Genitourinary: DENIES: Urinary frequency, Urgency, Hematuria, Dysuria Musculoskeletal: DENIES: Joint pain, Muscle aches, Stiffness, Joint Swelling Integumentary: DENIES: Rash Neurologic: COMPLAINS OF: Seizures, DENIES: Abnormal gait, Headache, Localized weakness, Paresthesias, Speech Problems, Tremor, Poor Balance Psychiatric: DENIES: Anxiety, Confusion, Mood changes, Depression, Hallucinations, Agitation, Suicidal Ideation, Homicidal Ideation, Delusions Past Family Social History Past Medical History bipolar disorder/ seizure disorder. Reported Medications Neurontin (Gabapentin) 300 Mg Cap 300 Mg PO TID Seroquel (Quetiapine Fumarate) 400 Mg Tab 400 Mg PO BID Vistaril (Hydroxyzine Pamoate) 50 Mg Cap 50 Mg PO TID [place] Carbonate 300 Mg Cap 300 Mg PO TID Clonidine (Clonidine HCl) 0.1 Mg Tab 0.1 Mg PO BID Prazosin (Prazosin HCl) 5 Mg Cap 5 Mg PO TID Allergies: Coded Allergies: No Known Allergies (Unverified Adverse Reaction, Unknown, 08/29/17) Active Ordered Medications Inpatient Medications Acetaminophen (Tylenol) 650 mg Q4H PRN PO PAIN SCALE 1 TO 10/temp > 101; Start 08/29/17 at 03:45 Clonidine (Catapres) 0.1 mg BID PO ; Start 08/29/17 at 09:00 Gabapentin (Neurontin) 300 mg TID PO ; Start 08/29/17 at 09:00 Hydroxyzine Pamoate (Vistaril) 50 mg TID PO ; Start 08/29/17 at 09:00 Levetriacetam (Keppra) 500 mg Q12HR PO ; Start 08/29/17 at 09:00 Levetriacetam 500 mg/Sodium Chloride 105 ml @ 420 mls/hr BOLUS ONCE IV Last administered on 08/29/17at 03:26; Start 08/29/17 at 03:15; Stop 08/29/17 at 03:29 ; Status DC [place] Carbonate ([place] Carbonate) 300 mg TID PO ; Start 08/29/17 at 09:00 Lorazepam (Ativan Inj) 2 mg Q10M PRN IV PUSH SEE LABEL COMMENTS; Start at 03:45 Ondansetron HCl (Zofran Inj) 4 mg ONCE ONCE IV Last administered on 08/29/17at 00:25; Start 08/29/17 at 00:15; Stop 08/29/17 at 00:16; Status DC Prazosin HCl (Minipress) 5 mg TID PO ; Start 08/29/17 at 09:00 Quetiapine Fumarate (SEROquel) 400 mg BID PO ; Start 08/29/17 at 09:00 Sodium Chloride (NS Flush) 2 ml BID IV FLUSH ; Start 08/29/17 at 09:00 Family History no seizure history in the family. Social History no smoking or drugs- drinks occasionally. Physical Exam Vital Signs Vital Signs Date Time Temp Pulse Resp B/P (MAP) Pulse Ox O2 Delivery O2 Flow Rate FiO2 08/29/17 04:29 75 16 156/90 (112) 100 Nasal Cannula 2.00 08/29/17 00:29 78 16 125/85 (98) 100 Nasal Cannula 2.00 08/29/17 00:19 16 08/29/17 00:06 101 18 100 Nasal Cannula 2.00 08/29/17 00:01 98.1 110 18 157/104 (121) 100 Physical Exam GENERAL: This is a well-nourished, well-developed patient, in no apparent distress. SKIN: No rashes, ecchymoses or lesions. Cool and dry. HEAD: Atraumatic. Normocephalic. No temporal or scalp tenderness. EYES: Pupils equal round and reactive. Extraocular motions intact. No scleral icterus. No injection or drainage. ENT: Nose without bleeding, purulent drainage or septal hematoma. Throat without erythema, tonsillar hypertrophy or exudate. Uvula midline. Airway patent. NECK: Trachea midline. No JVD or lymphadenopathy. Supple, nontender, no meningeal signs. CARDIOVASCULAR: Regular rate and rhythm without murmurs, gallops, or rubs. RESPIRATORY: Clear to auscultation. Breath sounds equal bilaterally. No wheezes , rales, or rhonchi. GASTROINTESTINAL: Abdomen soft, non-tender, nondistended. No hepato-splenomegaly , or palpable masses. No guarding. MUSCULOSKELETAL: Extremities without clubbing, cyanosis, or edema. No joint tenderness, effusion, or edema noted. No calf tenderness. Negative Homans sign bilaterally. NEUROLOGICAL: Awake and alert. Cranial nerves II through XII intact. Motor and sensory grossly within normal limits. Five out of 5 muscle strength in all muscle groups. Normal speech. Laboratory Laboratory Tests Test 08/29/17 00:10 08/29/17 00:45 White Blood Count 3.3 Red Blood Count 4.16 Hemoglobin 12.5 Hematocrit 37.1 Mean Corpuscular Volume 89.1 Mean Corpuscular Hemoglobin 30.2 Mean Corpuscular Hemoglobin Concent 33.8 Red Cell Distribution Width 13.3 Platelet Count 277 Mean Platelet Volume 7.7 Neutrophils (%) (Auto) 48.6 Lymphocytes (%) (Auto) 41.8 Monocytes (%) (Auto) 7.1 Eosinophils (%) (Auto) 1.4 Basophils (%) (Auto) 1.1 Neutrophils # (Auto) 1.6 Lymphocytes # (Auto) 1.4 Monocytes # (Auto) 0.2 Eosinophils # (Auto) 0.0 Basophils # (Auto) 0.0 CBC Comment DIFF FINAL Differential Comment Prothrombin Time 10.8 Prothromb Time International Ratio 1.1 Activated Partial Thromboplast Time 23.6 Blood Urea Nitrogen 9 Creatinine 0.84 Random Glucose 88 Total Protein 7.3 Albumin 3.7 Calcium Level 8.2 Magnesium Level 2.3 Alkaline Phosphatase 64 Aspartate Amino Transf (AST/SGOT) 17 Alanine Aminotransferase (ALT/SGPT) 20 Total Bilirubin 0.3 Sodium Level 147 Potassium Level 3.6 Chloride Level 111 Carbon Dioxide Level 24.2 Anion Gap 12 Estimat Glomerular Filtration Rate 79 Ammonia 103 Total Creatine Kinase 69 Troponin I LESS THAN 0.02 Lipase 83 Thyroid Stimulating Hormone 3rd Gen 1.130 Salicylates Level LESS THAN 1.7 Acetaminophen Level LESS THAN 2.0 Ethyl Alcohol Level 122 Urine Color LIGHT-YELLOW Urine Turbidity CLEAR Urine pH 7.0 Urine Specific [place] 1.007 Urine Protein NEG Urine Glucose (UA) NEG Urine Ketones NEG Urine Occult Blood NEG Urine Nitrite NEG Urine Bilirubin NEG Urine Urobilinogen LESS THAN 2.0 Urine Leukocyte Esterase NEG Urine RBC LESS THAN 1 Urine WBC 1 Urine Squamous Epithelial Cells 2 Urine Transitional Epithelial Cells 2 Microscopic Urinalysis Comment CULT NOT INDICATED Urine Opiates Screen NEG Urine Barbiturates Screen NEG Urine Amphetamines Screen NEG Urine Benzodiazepines Screen POS Urine Cocaine Screen NEG Urine Cannabinoids Screen NEG Result Diagram: 08/29/17 0010 08/29/17 0010 Imaging Last Impressions Head CT 08/29/17 0004 Signed Impressions: Service Date/Time: Tuesday, August 29, 2017 02:47 - CONCLUSION: Negative noncontrast head CT. Earl Enciso MD Chest X-Ray 08/29/17 0004 Signed Impressions: Service Date/Time: Tuesday, August 29, 2017 00:17 - CONCLUSION: No acute cardiopulmonary disease. MD Mira Ramirezi VTE Risk Assessment Natalie VTE Risk Assessment: No/Low Risk (score <= 1) Caprini Risk Assessment Model Point Value = 1 Point Value = 2 Point Value = 3 Point Value = 5 Age 41-60 Minor surgery BMI > 25 kg/m2 Swollen legs Varicose veins or History of unexplained or recurrent spontaneous Oral contraceptives or hormone replacement Sepsis (< 1 month) Serious lung disease, including pneumonia (< 1 month) Abnormal pulmonary function Acute myocardial infarction Congestive heart failure (< 1 month) History of inflammatory bowel disease Medical patient at bed rest Age 61-74 Arthroscopic surgery Major open surgery (> 45 min) Laparoscopic surgery (> 45 min) Malignancy Confined to bed (> 72 hours) Immobilizing plaster cast Central venous access Age >= 75 History of VTE Family history of VTE Factor V Leiden Prothrombin [id number] Lupus anticoagulant Anticardiolipin antibodies Elevated serum homocysteine Heparin-induced thrombocytopenia Other congenital or acquired thrombophilia Stroke (< 1 month) Elective arthroplasty Hip, pelvis, or leg fracture Acute spinal cord injury (< 1 month) Prophylaxis Regimen Total Risk Factor Score Risk Level Prophylaxis Regimen 0-1 Low Early ambulation 2 Moderate Order ONE of the following: *Sequential Compression Device (SCD) *Heparin 5000 units SQ BID 3-4 Higher Order ONE of the following medications: *Heparin 5000 units SQ TID *Enoxaparin/Lovenox 40 mg SQ daily (WT < 150 kg, CrCl > 30 mL/min) *Enoxaparin/Lovenox 30 mg SQ daily (WT < 150 kg, CrCl > 10-29 mL/min) *Enoxaparin/Lovenox 30 mg SQ BID (WT < 150 kg, CrCl > 30 mL/min) AND/OR *Sequential Compression Device (SCD) 5 or more Highest Order ONE of the following medications: *Heparin 5000 units SQ TID (Preferred with Epidurals) *Enoxaparin/Lovenox 40 mg SQ daily (WT < 150 kg, CrCl > 30 mL/min) *Enoxaparin/Lovenox 30 mg SQ daily (WT < 150 kg, CrCl > 10-29 mL/min) *Enoxaparin/Lovenox 30 mg SQ BID (WT < 150 kg, CrCl > 30 mL/min) AND *Sequential Compression Device (SCD) Assessment and Plan Assessment and Plan A/P - seizure continue with Keppra- ativan as needed- check EEG- seizure precautions- neurology consulted. -bipolar disorder; resume home meds. Discussed Condition With the patient and RN. Santana Valencia MD Aug 29, 2017 08:00
[2017-08-29] MEDS ORDERED: DIVA250ER PO (08:07)
[2017-08-29] MEDS ORDERED: SODIUM CHLORIDE 0.9% FLUSH 10 ML FLUSH IV FLUSH SCH (09:00)
[2017-08-29] MEDS ORDERED: LITHIUM CARBONATE 300 MG CAP PO SCH (09:00)
[2017-08-29] MEDS ORDERED: levETIRAcetam 500 MG TAB PO SCH (09:00)
[2017-08-29] MEDS: GABAPENTIN 300 MG CAP PO SCH ×3 (09:11→18:25)
[2017-08-29] MEDS: PRAZOSIN HCL 5 MG CAP PO SCH ×3 (09:11→18:00)
[2017-08-29] MEDS: QUEtiapine FUMARATE 200 MG TAB PO SCH ×2 (09:11→20:24)
[2017-08-29] MEDS: cloNIDine HCL 0.1 MG TAB PO SCH ×2 (09:11→20:24)
[2017-08-29] MEDS: ACETAMINOPHEN 325 MG TAB PO PRN (11:13)
[2017-08-29] MEDS ORDERED: DEXTROSE 50% IN WATER 50 ML VIAL(D50) IV PUSH PRN (16:45)
[2017-08-29] MEDS ORDERED: GLUCAGON 1 MG/ML VIAL OTHER PRN (16:45)
--- NOTE | 2017-08-29 16:56 | MB ---
cc: Kel Matta MD, PhD DATE: 08/29/2017 REASON FOR CONSULTATION: Seizure. HISTORY OF PRESENT ILLNESS: Ms. Edwards is a 32-year-old female who states she has had several seizures in the past, at least for the past year, where she loses consciousness, has generalized shaking activity. Apparently had a seizure last night, was brought to the ER. She states she has not been on any seizure medications. She denies any head trauma, meningitis, encephalitis. PAST MEDICAL HISTORY: History of bipolar disorder, seizures as noted above. MEDICATIONS AT HOME: Gabapentin 300 mg t.i.d., Seroquel 400 mg b.i.d., Vistaril 50 mg t.i.d., lithium 300 mg t.i.d., clonidine 0.1 mg b.i.d., prazosin 5 mg t.i.d. Here in the hospital, she was started on Keppra 500 mg b.i.d. ALLERGIES: NOT KNOWN. NEUROLOGIC EXAMINATION: VITAL SIGNS: Blood pressure is 98/71, pulse 121, respiratory rate is 18, temperature 98.6 degrees. HIGHER CORTICAL FUNCTIONS: She is alert and oriented. Speech is normal. CRANIAL NERVES: Intact. MOTOR: 5/5 strength. There is no drift. Reflexes are symmetric. DIAGNOSTIC DATA: CT brain is normal. EEG pending. LABORATORY DATA: White count is 3300, hemoglobin 12.5, hematocrit 37.1%, platelet count 277,000. Sodium is 147, potassium 3.6, chloride 111, CO2 of 24.2, BUN is 9, creatinine 0.84. AST is 17, ALT is 20, ammonia 103. TSH 1.13. PT 10.8, INR 1.1, aPTT 23.6. Tox screen positive for benzodiazepines. Alcohol level 122. IMPRESSION: Probable generalized seizure. Rule out the effects of alcohol. RECOMMENDATION: Continue Keppra, but will increase the dose to 1000 mg b.i.d. Will follow up on the EEG. Also check an MRI of the brain. The patient should not drive for at least 6 months of being seizure free. Kel Matta MD, PhD MAGEN/SB , 04:24 PM , 04:55 PM
[2017-08-29] MEDS: CLOPIDOGREL 75 MG TAB PO SCH (16:59)
[2017-08-29] MEDS: ASPIRIN 325 MG TAB PO SCH (17:00)
[2017-08-29] MEDS: INSULIN ASPART SUPPLEMENTAL SCALE SQ SCH ×2 (18:25→20:26)
--- NOTE | 2017-08-29 19:18 | MG ---
cc: Raad Bermeo MD DATE OF STUDY: 08/29/2017 REQUESTING PROVIDER: Kamar LEDEZMA DESCRIPTION: An EEG was obtained on this 32-year-old patient, admitted for seizure. The patient is described as awake and asleep. Fairly prominent muscle artifact is noted, but there is a mixture of theta with some beta rhythms diffusely. There is some delta activity as well. At times, there is a predominance of theta rhythms diffusely. Photic stimulation was unremarkable. INTERPRETATION: Abnormal electroencephalogram because of mild generalized slowing suggesting a mild to moderate diffuse disturbance of cerebral function. The study is somewhat limited, but there are no distinct epileptiform discharges. Raad Bermeo MD OFC/KD , 06:49 PM , 07:17 PM
[2017-08-29] MEDS: levETIRAcetam 500 MG TAB PO SCH (20:24)
[2017-08-29] MEDS: SODIUM CHLORIDE 0.9% FLUSH 10 ML FLUSH IV FLUSH SCH (20:25)
--- NOTE | 2017-08-29 22:28 | EKG ---
Date Performed: 08/29/2017 Time Performed: 00:07:46 PTAGE: 32 years EKG: SINUS TACHYCARDIA ABNORMAL RHYTHM ECG PREVIOUS TRACING : 06/24/2017 08.42 Compared to previous tracing, rate slower DOCTOR: Edmundo Hinson Interpretating Date/Time 08/29/2017 22:26:44
[2017-08-30 00:42] VITALS: O2SAT 99
[2017-08-30 03:57] VITALS: BP 122/78; PULSE 84; RESP 16; TEMP 98.5; O2SAT 100
[2017-08-30] MEDS: SODIUM CHLOR 0.9% 1000 ML INJ 1,000 ML IV SCH (06:23)
[2017-08-30 07:32] VITALS: BP 165/88; PULSE 70; RESP 18; TEMP 97.5; O2SAT 100
[2017-08-30] MEDS: INSULIN ASPART SUPPLEMENTAL SCALE SQ SCH ×2 (08:20→12:00)
[2017-08-30] MEDS: SODIUM CHLORIDE 0.9% FLUSH 10 ML FLUSH IV FLUSH SCH (08:24)
[2017-08-30] MEDS: QUEtiapine FUMARATE 200 MG TAB PO SCH (08:24)
[2017-08-30] MEDS: PRAZOSIN HCL 5 MG CAP PO SCH ×2 (08:24→14:08)
[2017-08-30] MEDS: CLOPIDOGREL 75 MG TAB PO SCH (08:25)
[2017-08-30] MEDS: GABAPENTIN 300 MG CAP PO SCH ×2 (08:25→14:08)
[2017-08-30] MEDS: cloNIDine HCL 0.1 MG TAB PO SCH (08:25)
[2017-08-30] MEDS: ASPIRIN 325 MG TAB PO SCH (08:25)
[2017-08-30] MEDS: levETIRAcetam 500 MG TAB PO SCH (08:26)
--- NOTE | 2017-08-30 09:03 | HHI.PR ---
Subjective Remarks in no acute distress. no seizures. has some swelling of the right arm. no other complaints. Objective Vitals Vital Signs Date Time Temp Pulse Resp B/P (MAP) Pulse Ox O2 Delivery O2 Flow Rate FiO2 08/30/17 07:32 97.5 70 18 165/88 (113) 100 08/30/17 03:57 98.5 84 16 122/78 (93) 100 08/30/17 00:42 99 08/29/17 23:46 98.3 69 16 101/60 (74) 100 08/29/17 23:00 71 08/29/17 21:14 108 16 105/63 (77) 100 08/29/17 18:30 95 114/63 (80) 08/29/17 17:57 94 08/29/17 15:39 98.6 121 18 98/71 (80) 98 08/29/17 12:35 105 08/29/17 11:07 98.4 117 20 123/85 (98) 100 08/29/17 11:01 08/29/17 09:59 107 18 131/92 (105) 08/29/17 09:10 80 18 146/100 (115) 98 Room Air I/O 08/29/17 08/29/17 08/29/17 08/30/17 08/30/17 08/30/17 07:00 15:00 23:00 07:00 15:00 23:00 Intake Total 1000 ml Output Total 650 ml Balance 1000 ml -650 ml Intake IV Total 1000 ml Output Urine Total 650 ml # Voids 1 Result Diagram: 08/29/17 0010 08/29/17 0010 Imaging Last Impressions Head CT 08/29/17 0004 Signed Impressions: Service Date/Time: Tuesday, August 29, 2017 02:47 - CONCLUSION: Negative noncontrast head CT. Earl Enciso MD Chest X-Ray 08/29/17 0004 Signed Impressions: Service Date/Time: Tuesday, August 29, 2017 00:17 - CONCLUSION: No acute cardiopulmonary disease. Earl Enciso MD Objective Remarks GENERAL: This is a well-nourished, well-developed patient, in no apparent distress. CARDIOVASCULAR: Regular rate and regular rhythm without murmurs, gallops, or rubs. RESPIRATORY: Clear to auscultation. Breath sounds equal bilaterally. No wheezes , rales, or rhonchi. GASTROINTESTINAL: Abdomen soft, non-tender, nondistended. Normal, active bowel sounds MUSCULOSKELETAL: some swelling of the right arm. NEURO: Alert & Oriented x4 to person, place, time, situation. Moves all ext x4 Medications and IVs Inpatient Medications Acetaminophen (Tylenol) 650 mg Q4H PRN PO PAIN SCALE 1 TO 10/temp > 101 Last administered on 08/29/17at 11:13; Start 08/29/17 at 03:45 Aspirin (Aspirin) 325 mg DAILY PO Last administered on 08/30/17 08:25; Start 08/29/17 at 16:45 Clonidine (Catapres) 0.1 mg BID PO Last administered on 08/30/17 08:25; Start 08/29/17 at 09:00 Clopidogrel Bisulfate (Plavix) 75 mg DAILY PO Last administered on 08/30/17at 08 :25; Start 08/29/17 at 16:45 Dextrose (D50w (Vial) Inj) 50 ml UNSCH PRN IV PUSH HYPOGLYCEMIA-SEE COMMENTS; Start 08/29/17 at 16:45 Gabapentin (Neurontin) 300 mg TID PO Last administered on 08/30/17at 08:25; Start 08/29/17 at 09:00 Glucagon (Glucagon Inj) 1 mg UNSCH PRN OTHER HYPOGLYCEMIA-SEE COMMENTS; Start 08/29/17 at 16:45 Hydroxyzine Pamoate (Vistaril) 50 mg TID PO Last administered on 08/30/17at 08: 25; Start 08/29/17 at 09:00 Influenza Virus Vaccine (Flu (Quadrivalent) Vaccine Inj) 0.5 ml ONCE ONCE IM Last administered on 08/30/17at 08:29; Start 08/30/17 at 10:00; Stop 08/30/17 at 10:01 Insulin Aspart (NovoLOG SUPPLEMENTAL SCALE) 1 ACHS SQ Last administered on 08/29at 18:25; Start 08/29/17 at 17:00 Levetriacetam (Keppra) 1,000 mg Q12HR PO Last administered on 08/30/17at 08:26; Start 08/29/17 at 21:00 Levetriacetam 500 mg/Sodium Chloride 105 ml @ 420 mls/hr BOLUS ONCE IV Last administered on 08/29/17at 03:26; Start 08/29/17 at 03:15; Stop 08/29/17 at 03:29 ; Status DC [place] Carbonate ([place] Carbonate) 300 mg TID PO ; Start 08/29/17 at 09:00; Stop 08/29/17 at 09:00; Status DC Lorazepam (Ativan Inj) 2 mg Q10M PRN IV PUSH SEE LABEL COMMENTS; Start at 03:45 Ondansetron HCl (Zofran Inj) 4 mg ONCE ONCE IV Last administered on 08/29/17at 00:25; Start 08/29/17 at 00:15; Stop 08/29/17 at 00:16; Status DC Prazosin HCl (Minipress) 5 mg TID PO Last administered on 08/30/17at 08:24; Start 08/29/17 at 09:00 Quetiapine Fumarate (SEROquel) 400 mg BID PO Last administered on 08/29/17at 20: 24; Start 08/29/17 at 09:00 Sodium Chloride (NS Flush) 2 ml UNSCH PRN IV FLUSH FLUSH AFTER USING IV ACCESS ; Start 08/29/17 at 16:45 A/P Problem List: (1) Prolonged seizure ICD Code: G40.901 - Epilepsy, unspecified, not intractable, with status epilepticus Status: Acute Assessment and Plan - seizure EEG with no epileptiform activity. neurology consult appreciated; will continue with Keppra- MRI brain pending. -swelling of the right arm; will check venous doppler to r/o DVT. -bipolar disorder; resume home meds. Discharge Planning dc home today- pending MRI brain and venous doppler of the right arm. see med list. f/u; pcp and neurology. no driving. Santana Valencia MD Aug 30, 2017 09:03
[2017-08-30] MEDS ORDERED: LEVE500 PO (09:13)
--- NOTE | 2017-08-30 09:14 | HHI.DCPOC ---
Discharge Care Plan Diagnosis: (1) Prolonged seizure Goals to Promote Your Health * To prevent worsening of your condition and complications * To maintain your health at the optimal level Directions to Meet Your Goals Take your medications as prescribed Follow your dietary instruction Follow activity as directed Keep your appointments as scheduled Take your immunizations and boosters as scheduled If your symptoms worsen call your PCP, if no PCP go to Urgent Care Center or Emergency Room Smoking is Dangerous to Your Health. Avoid second hand smoke Call the 24-hour hour crisis hotline for domestic abuse at Siobhan Bernal PA-C Aug 30, 2017 9:14 am
[2017-08-30 09:47] LABS: AUTOMATED NEUTROPHIL # 2.1 TH/MM3 (1.8-7.7); BASOPHIL % 0.6 % (0.0-2.0); EOSINOPHIL # 0.1 TH/MM3 (0-0.4); EOSINOPHIL % 2.4 % (0.0-4.0); HEMATOCRIT 36.5 % (35.0-46.0); HEMOGLOBIN 11.9 GM/DL (11.6-15.3); LYMPH % 33.2 % (9.0-44.0); LYMPHOCYTE # 1.2 TH/MM3 (1.0-4.8); MEAN CELL VOLUME 91.8 FL (80.0-100.0); MEAN CORPUSCULAR HGB CONC 32.7 % (32.0-36.0); MEAN PLATELET VOLUME 8.1 FL (7.0-11.0); MONOCYTE # 0.3 TH/MM3 (0-0.9); NEUT % 55.8 % (16.0-70.0); PLATELET COUNT 204 TH/MM3 (150-450); RED BLOOD COUNT 3.98 MIL/MM3 (4.00-5.30); RED CELL DISTRIBUTION WIDTH 13.4 % (11.6-17.2); WHITE BLOOD COUNT 3.7 TH/MM3 (4.0-11.0)
[2017-08-30 09:57] VITALS: PULSE 62
[2017-08-30] MEDS ORDERED: INFLUENZA VIRUS VACCINE (QUADRIVALENT) 0.5 ML SYR IM ONE (10:00)
[2017-08-30 10:07] LABS: ALBUMIN 3.5 GM/DL (3.4-5.0); ALT (GPT) 18 U/L (10-53); BICARBONATE 24.9 MEQ/L (21.0-32.0); BLOOD UREA NITROGEN 15 MG/DL (7-18); CALCIUM 8.4 MG/DL (8.5-10.1); CHLORIDE 109 MEQ/L (98-107); CREATININE 0.95 MG/DL (0.50-1.00); GLOMERULAR FILTRATION RATE 68 ML/MIN (>89); GLUCOSE,RANDOM 117 MG/DL (74-106); SODIUM (NA) 142 MEQ/L (136-145)
[2017-08-30 10:10] LABS: ALKALINE PHOSPHATASE 75 U/L (45-117); AST (GOT) 14 U/L (15-37); CHOLESTEROL 188 MG/DL (120-200); CHOLESTEROL/ HDL RATIO 2.45 RATIO; HDL CHOLESTEROL 76.5 MG/DL (40.0-60.0); LDL CHOLESTEROL 88 MG/DL (0-99); TOTAL BILIRUBIN ADULT 0.3 MG/DL (0.2-1.0); TOTAL PROTEIN 6.9 GM/DL (6.4-8.2); TRIGLYCERIDES 120 MG/DL (42-150)
[2017-08-30] MEDS ORDERED: GADODIAMIDE PF 287 MG/ML 5 ML VIAL (for RAD MRI) IVCONTRAST ONE (10:19)
--- NOTE | 2017-08-30 10:46 | RADRPT ---
EXAM DATE/TIME: 08/30/2017 09:54 [facility] COMPARISON: No previous studies available for comparison. INDICATIONS : Seizures. CONTRAST: 13 cc Omniscan (gadodiamide) IV MEDICAL HISTORY : Hypertension. SURGICAL HISTORY : Lt foot, D+C, ENCOUNTER: Subsequent ACUITY: 2 day PAIN SCORE: 0/10 LOCATION: cranial TECHNIQUE: Multiplanar, multisequence MRI of the brain was performed both prior to and following the administrat ion of paramagnetic contrast. FINDINGS: CEREBRUM: The ventricles are normal for age. No evidence of midline shift, mass lesion, hemorrhage or acute in farction. No extraaxial fluid collections are seen. The pituitary gland and suprasellar cistern are normal in configuration. Hippocampi and perihippocampal gyrus appear symmetric with symmetric signal and no abnormal enhancement. WHITE MATTER: No significant signal abnormalities are seen in the white matter. POSTERIOR FOSSA: The cerebellum and brainstem are intact. The 4th ventricle is midline. The cerebellopontine angle is unremarkable. The cerebellar tonsils are normal in position. DIFFUSION IMAGING: No focal areas of restricted diffusion are seen. No evidence of acute infarction. EXTRACRANIAL: The visualized portions of the orbits and paranasal sinuses are unremarkable. POST-CONTRAST: No abnormal areas of parenchymal or dural enhancement. No evidence of blood-brain barrier breakdown. CONCLUSION: 1. Unremarkable MRI examination the brain. Frantz Zhao MD on August 30, 2017 at 10:38 Board Certified Radiologist. This report was verified electronically.
[2017-08-30] MEDS: ACETAMINOPHEN 325 MG TAB PO PRN (11:01)
--- NOTE | 2017-08-30 11:38 | RADRPT ---
EXAM DATE/TIME: 08/30/2017 10:06 [facility] COMPARISON: No previous studies available for comparison. INDICATIONS : Right arm edema. MEDICAL HISTORY : Hypertension. Seizures. Migraine. Arthritis. Kidney stones. SURGICAL HISTORY : Dilation and curettage. Orthopedic surgery, left foot. ENCOUNTER: Initial ACUITY: 1 day PAIN SCORE: 2/10 LOCATION: Right arm. FINDINGS: There is spontaneous flow documented in the brachial, basilic, cephalic, axillary, and subclavian vei ns. The vessels are compressible and augmentation response is documented. No filling defects are se en. The flow is phasic with respiration. Direction of flow in the jugular vein is caudal. Significant edematous changes are seen throughout the soft tissues. CONCLUSION: 1. No evidence of acute DVT or SVT. 2. Significant arm edema. Ilia Oconnor MD on August 30, 2017 at 11:13 Board Certified Radiologist. This report was verified electronically.
[2017-08-30 11:55] VITALS: BP 137/84; PULSE 73; RESP 18; TEMP 98.2; O2SAT 100
[2017-08-30] MEDS ORDERED: POTASSIUM CHLORIDE 20 MEQ CONTROLLED RELEASE TAB PO ONE (13:15)
[2017-08-30 18:03] LABS: HEMOGLOBIN A1C 5.1 % (4.3-6.0)
== END 2017-08-30 17:29 | disposition home or self-care (01) ==
LOC: NEPE 23:59 → NEDA 08-29 03:08 → NEDH 08-29 08:28 → NEPGCP 08-29 11:07
PROVIDERS: ADMIT Internal Medicine; ATTEND Internal Medicine
DX: G40.909 Epilepsy, unspecified, not intractable, without status epilepticus (principal); D64.9 Anemia, unspecified; I10 Essential (primary) hypertension; G56.03 Carpal tunnel syndrome, bilateral upper limbs; G43.909 Migraine, unspecified, not intractable, without status migrainosus; Z72.0 Tobacco use; F31.9 Bipolar disorder, unspecified; F90.9 Attention-deficit hyperactivity disorder, unspecified type; M79.89 Other specified soft tissue disorders; R94.31 Abnormal electrocardiogram [ECG] [EKG]; R60.9 Edema, unspecified; Z87.442 Personal history of urinary calculi; R06.02 Shortness of breath; Z23 Encounter for immunization; R41.0 Disorientation, unspecified; R79.89 Other specified abnormal findings of blood chemistry
CPT/HCPCS: 70450; 70553; 71045; 80053; 80061; 80307; 81001; 82140; 82550; 82948; 83036; 83690; 83735; 84443; 84484; 84702; 84703; 85025; 85610; 85730; 90471; 90686; 93005; 93971; 95819; 96361; 96365; 96372; 96375; 99285; A9579; G0378; J1815; J1953; J2405; J7030; G0008; Q2038